=== PATIENT | male | born 1980 | race African-American/Black ===

== ENCOUNTER → 2018-05-08 | Outpatient (REF) | payer OTHER ==
[2018-05-08 23:39] LABS: CHLAMYDIA DNA AMPLIFICATION NEGATIVE (NEGATIVE); GC DNA AMPLIFICATION NEGATIVE (NEGATIVE)
== END ==
LOC: M LAB REF 09:02
DX: Z11.3 Encounter for screening for infections with a predominantly sexual mode of transmission (principal)
CPT/HCPCS: 87591

== ENCOUNTER 2018-05-30 13:07 | Emergency (ER) | payer OTHER ==
[2018-05-30] MEDS ORDERED: ONDANSETRON 4MG/2ML VIAL (J2405) IV (13:45)
[2018-05-30] MEDS ORDERED: NS 1,000 ML IV (13:45)
[2018-05-30] MEDS ORDERED: MORPHINE 4 MG/ML 1ML VIAL/SYRINGE (J2270) IV (13:45)
== END 2018-05-30 14:09 | disposition left against medical advice (07) ==
LOC: M ED 13:07
DX: R10.9 Unspecified abdominal pain (principal); Z53.21 Procedure and treatment not carried out due to patient leaving prior to being seen by health care provider; F90.9 Attention-deficit hyperactivity disorder, unspecified type; G44.001 Cluster headache syndrome, unspecified, intractable; Z72.0 Tobacco use; Z79.899 Other long term (current) drug therapy
CPT/HCPCS: 99282

== ENCOUNTER 2022-12-02 11:07 | Emergency (ER) | payer OTHER ==
[~2022-12-02] VITALS: Ht 175.3 cm; Wt 80.4 kg
[~2022-12-02 11:07] MED LIST: AMPHET/DEXTR
[2022-12-02 11:56] VITALS: BP 138/83
[2022-12-02] MEDS ORDERED: IBUP80TA PO (12:43)
== END 2022-12-02 13:11 | disposition home or self-care (01) ==
LOC: M ED 11:07
DX: S60.222A Contusion of left hand, initial encounter (principal); W23.0XXA Caught, crushed, jammed, or pinched between moving objects, initial encounter; F41.9 Anxiety disorder, unspecified; F90.9 Attention-deficit hyperactivity disorder, unspecified type; F17.200 Nicotine dependence, unspecified, uncomplicated; F12.10 Cannabis abuse, uncomplicated; F10.10 Alcohol abuse, uncomplicated; Z79.1 Long term (current) use of non-steroidal anti-inflammatories (NSAID)

== ENCOUNTER 2024-07-21 19:30 | Emergency (ER) | payer MEDICARE, OTHER, SELFPAY ==
[~2024-07-21] VITALS: Ht 177.8 cm; Wt 77.3 kg
[~2024-07-21 19:30] MED LIST changes: +IBUP80TA PO
[2024-07-21 20:08] LABS: BASO % 0.2 % (0.0-1.0); HEMATOCRIT 39.9 % (42.0-52.0); HEMOGLOBIN 14.3 g/dl (13.5-17.5); LYMPH # 0.9 10^3/uL (1.5-5.0); LYMPH % 17.1 % (24.0-44.0); MEAN CORPUSCULAR HEMOGLOBIN 34.9 pg (27.0-33.0); MEAN CORPUSCULAR HGB CONC 35.8 g/dl (32.0-36.5); MEAN CORPUSCULAR VOLUME 97.3 fl (80.0-96.0); MONO # 0.4 10^3/uL (0.0-0.8); MONO % 7.6 % (2.0-8.0); NEUTROPHILS # 3.9 10^3/uL (1.5-8.5); NEUTROPHILS % 74.9 % (36.0-66.0); PLATELET COUNT, AUTOMATED 290 10^3/uL (150-450); WHITE BLOOD COUNT 5.2 10^3/uL (4.0-10.0)
[2024-07-21 20:37] LABS: CK-MB VALUE MASS 6.3 NG/ML (<3.6)
[2024-07-21 20:38] LABS: BLOOD UREA NITROGEN 10 MG/DL (9-23); CARBON DIOXIDE LEVEL 25 MMOL/L (20-31); CHLORIDE LEVEL 104 MMOL/L (98-107); CREATININE FOR GFR 0.95 MG/DL (0.70-1.30); GLOMERULAR FILTRATION RATE > 60.0 (>60); GLUCOSE, FASTING 120 MG/DL (60-100); POTASSIUM SERUM 3.8 MMOL/L (3.5-5.1); SODIUM LEVEL 136 MMOL/L (136-145)
[2024-07-21 20:39] LABS: CPK CREATINE PHOSPHOKINASE 794 U/L (46-171); MB/CK RELATIVE INDEX 0.79 (< OR =4)
[2024-07-21 22:25] VITALS: BP 137/84; TEMP 97.8; O2SAT 98
== END 2024-07-21 22:27 | disposition home or self-care (01) ==
LOC: M ED 19:30
DX: R07.9 Chest pain, unspecified (principal); F41.0 Panic disorder [episodic paroxysmal anxiety]; G43.909 Migraine, unspecified, not intractable, without status migrainosus; F90.9 Attention-deficit hyperactivity disorder, unspecified type; Z79.1 Long term (current) use of non-steroidal anti-inflammatories (NSAID)